=== PATIENT | male | born 1975 | race Caucasian/White ===

== ENCOUNTER 2024-05-27 07:37 | Day surgery (SDC) | payer MEDICAID ==
[~2024-05-27 07:37] MED LIST: Midazolam 1 MG/ML 2 ML SDV ONE; Propofol 200 MG/20 ML SDV ONE; fentaNYL 50 MCG/ML SDV ONE
[2024-05-27] MEDS: Sodium Chloride 0.9% 1,000 ML IV SCH (08:21)
[2024-05-27] MEDS ORDERED: Propofol 200 MG/20 ML SDV ONE (09:12)
== END 2024-05-27 11:04 | disposition home or self-care (01) ==
LOC: JP.SDS 07:37
PROVIDERS: ATTEND Surgery
DX: Z12.11 Encounter for screening for malignant neoplasm of colon (principal); K22.89 Other specified disease of esophagus
CPT/HCPCS: 00813; 43239; 45378; J2250; J2704; J3010; J7030